=== PATIENT | male | born 1955 | race Caucasian/White ===

== ENCOUNTER 2017-02-01 09:49 | Emergency (ER) | payer OTHER ==
[~2017-02-01] VITALS: Ht 182.9 cm; Wt 136.1 kg
[2017-02-01 10:51] LABS: BASOPHILS % 0.4 % (0.0-1.0); EOSINOPHILS # (AUTO) 0.1 (0.0-0.4); EOSINOPHILS % 0.7 % (0.0-6.0); HEMATOCRIT 41.1 % (38.2-49.6); LYMPHOCYTES % 13.9 % (18.0-39.1); MEAN CORPUSCULAR HEMOGLOBIN 28.6 pg (28-32); MEAN CORPUSCULAR HGB CONC 34.1 g/dL (31-35); MONOCYTES # (AUTO) 0.5 (0.2-0.8); MONOCYTES % 6.6 % (4.4-11.3); NEUTROPHILS # (AUTO) 5.4 (2.1-6.9); NEUTROPHILS % 78.1 % (38.7-80.0); PLATELET COUNT 171 x10e3/uL (140-360); RED BLOOD COUNT 4.89 x10e6/uL (4.3-5.7); RED CELL DISTRIBUTION WIDTH 13.1 % (11.7-14.4)
[2017-02-01] MEDS ORDERED: LIDOCAINE HCL 1% 2 ML AMP INJ ONE (11:00)
[2017-02-01] MEDS ORDERED: CEFAZOLIN SOD 1 GM/NS 50ML 50 ML IV ONE (11:00)
[2017-02-01 11:11] LABS: ALBUMIN 4.1 g/dL (3.5-5.0); ALBUMIN/GLOBULIN RATIO 1.1 (0.8-2.0); ANION GAP 13.1 mmol/L (8-16); CALCIUM 9.8 mg/dL (8.4-10.2); CREATININE, SERUM 1.39 mg/dL (0.72-1.25); POTASSIUM 4.1 mmol/L (3.5-5.1)
[2017-02-01] MEDS ORDERED: CEFAZOLIN SOD 1 GM in WATER STERILE 10ML VIAL 10 ML IV ONE (11:15)
--- NOTE | 2017-02-01 11:15 | Diagnostic Imaging Report ---
Right wrist - 3 views HISTORY: Pain. COMPARISON: None available. FINDINGS: Bones: No acute displaced fracture. No expansile lytic or sclerotic lesion. Joints: The joint spaces are well-maintained. No dislocation. Soft tissues: The soft tissues appear unremarkable. IMPRESSION: No acute radiographic abnormality. Signed by: Dr. Klever Nair M.D. on 02/01/2017 11:12 AM
[2017-02-01] MEDS ORDERED: LIDOCAINE HCL 1% LOCAL INJ 20 ML VIAL INJ ONE (12:00)
== END 2017-02-01 12:42 | disposition home or self-care (01) ==
LOC: ER 09:49
DX: L02.91 Cutaneous abscess, unspecified (principal); I10 Essential (primary) hypertension; E11.9 Type 2 diabetes mellitus without complications; Z87.442 Personal history of urinary calculi
CPT/HCPCS: 10061; 36415; 73110; 80053; 83605; 85025; 87040; 99284; J0690; J2001 ×2

== ENCOUNTER 2018-01-11 10:07 | Observation (INO) | payer OTHER ==
[~2018-01-11] VITALS: Ht 182.9 cm; Wt 111.6 kg
--- OUTSIDE RECORDS SUMMARY | 2018-01-11 10:09 | XMS REPORT ---
Author Author [facility] Address Unknown Phone Unavailable Care Team Providers Care Staff Forester Name Role Phone Rossi LYLE Unavailable Unavailable Problems This patient has no known problems. Allergies, Adverse Reactions, Alerts This patient has no known allergies or adverse reactions. Medications This patient has no known medications. Results Test Description Test Time Test Comments Text Results Atomic Results Result Comments WRIST COMPLETE RIGHT [place] [address] Patient Name: NEHA CRUZ MR #: [id number] : 1955 Age/Sex: 61/M Req #: [id number] Adm Physician: Ordered by: WILIAM LYLE MD Report #: [id number] Location: ER Room/Bed: Procedure: [id number] DX/WRIST COMPLETE RIGHT Exam Date: 02/01/17 Exam Time: 1015 REPORT STATUS: Signed Right wrist - 3 views HISTORY: Pain. COMPARISON: None available. FINDINGS: Bones: No acute displaced fracture. No expansile lytic or sclerotic lesion. Joints: The joint spaces are well- maintained. No dislocation. Soft tissues: The soft tissues appear unremarkable. IMPRESSION: No acute radiographic abnormality. Signed by: Dr. Jonathan Nicole M.D. on 02/01/2017 11:12 AM Dictated By: JONATHAN NICOLE MD [id number] Transcribed By: NATIVIDAD on 02/01/17 1112 COPY TO: WILIAM LYLE MD
[2018-01-11] MEDS ORDERED: CRESTOR10 MG PO (10:35)
[2018-01-11] MEDS ORDERED: POTASSIUM CITR10 MEQ (10:35)
[2018-01-11] MEDS ORDERED: ALLOPURINOL300 MG PO (10:35)
[2018-01-11] MEDS ORDERED: TAMSULOSIN HCL0.4 MG PO (10:35)
[2018-01-11] MEDS ORDERED: CLINDAMYCIN HC300 MG PO (10:35)
[2018-01-11] MEDS ORDERED: INVOKANA PO (10:35)
[2018-01-11] MEDS ORDERED: SULFAMETHOXAZO1 EAC1 PO (10:35)
[2018-01-11] MEDS ORDERED: METFORMIN HCL500 MG PO (10:35)
[2018-01-11] MEDS ORDERED: RAMIPRIL10 MG PO (10:35)
[2018-01-11] MEDS ORDERED: ATENOLOL-CHLOR1 EACH PO (10:35)
[2018-01-11] MEDS ORDERED: CLINDAMYCIN PHOS 900MG/ 50ML 50 ML IV ONE (11:00)
[2018-01-11 11:08] LABS: BASOPHILS % 0.5 % (0.0-1.0); EOSINOPHILS # (AUTO) 0.1 (0.0-0.4); EOSINOPHILS % 1.4 % (0.0-6.0); HEMATOCRIT 43.1 % (38.2-49.6); HEMOGLOBIN 14.3 g/dL (14.0-18.0); LYMPHOCYTES # (AUTO) 1.6 (1.0-3.2); LYMPHOCYTES % 17.9 % (18.0-39.1); MEAN CORPUSCULAR HEMOGLOBIN 28.5 pg (28-32); MEAN CORPUSCULAR HGB CONC 33.2 g/dL (31-35); MEAN CORPUSCULAR VOLUME 85.9 fL (81-99); MONOCYTES # (AUTO) 0.4 (0.2-0.8); MONOCYTES % 4.5 % (4.4-11.3); NEUTROPHILS # (AUTO) 6.7 (2.1-6.9); NEUTROPHILS % 75.4 % (38.7-80.0); PLATELET COUNT 172 x10e3/uL (140-360); RED BLOOD COUNT 5.02 x10e6/uL (4.3-5.7); RED CELL DISTRIBUTION WIDTH 13.4 % (11.7-14.4)
[2018-01-11 11:44] LABS: ALBUMIN 3.8 g/dL (3.5-5.0); ANION GAP 14.9 mmol/L (8-16); CALCIUM 10.2 mg/dL (8.4-10.2); CREATININE, SERUM 1.27 mg/dL (0.72-1.25); POTASSIUM 3.9 mmol/L (3.5-5.1)
[2018-01-11] MEDS ORDERED: ONDANSETRON HCL INJ 2 MG/ML VIAL IV PRN (11:45)
[2018-01-11] MEDS ORDERED: MORPHINE SULFATE 2 MG/ML SYR IV PRN (11:45)
[2018-01-11] MEDS: PIPER-TAZ 3.375 GM 50 ML IV SCH ×2 (11:47→21:39)
[2018-01-11] MEDS: VANCOMYCIN 1GM/NS 250 ML 250 ML IV SCH (12:35)
[2018-01-11] MEDS ORDERED: DEXTROSE 50% SYRINGE 50 ML IV PRN (14:30)
[2018-01-11 15:20] VITALS: BP 135/63
[2018-01-11 15:22] LABS: CHOL/HDL RATIO 3.1 (3.9-4.7)
[2018-01-11] MEDS: INSULIN REGULAR, HUMAN 100 UNIT/1 ML 3ML VIAL SQ SCH ×2 (16:30→21:00)
[2018-01-11 16:39] VITALS: BP 135/63
[2018-01-11 20:00] VITALS: BP 130/65
[2018-01-11 20:30] VITALS: BP 130/65
[2018-01-11] MEDS: SIMVASTATIN 20 MG TAB PO SCH (21:00)
[2018-01-11] MEDS ORDERED: SODIUM CHLORIDE 0.9% 250ML 250 ML ONE (21:27)
[2018-01-11] MEDS: ACETAMINOPHEN 325 MG TAB PO PRN (22:03)
--- NOTE | 2018-01-11 22:03 | Diagnostic Imaging Report ---
History:Possible abscess of the lower lip Comparison studies: None Technique: Sagittal, coronal and axial T1, coronal and axial T2 with fat saturation. Intravenous contrast: None Findings: Lack of intravenous contrast limits the examination. Soft tissues: Edematous changes of the lower lip more prominent on the left, without drainable fluid collection Bones: No signal abnormalities in the bone marrow. Orbits: Globes: Grossly intact. Optic nerves and extraocular muscles: Normal in size and symmetric. Masses: None Paranasal sinuses: No T2 hyperintense mucosal inflammatory changes. IMPRESSION: 1. Left lower lip cellulitis without drainable fluid collection. Signed by: DR Adal Rodas M.D. on 01/11/2018 9:59 PM
--- NOTE | 2018-01-11 23:54 | History and Physical ---
PRIMARY CARE PHYSICIAN: Dr. Queen. CHIEF COMPLAINT: Lip swelling. HISTORY OF PRESENT ILLNESS: This is a 62-year-old man with a history of diabetes mellitus type 2, who had ingrown hair on his left lower lip, started picking on it and subsequently developed swelling and pain of the left lower lip. He was admitted for further evaluation and management. PAST MEDICAL HISTORY: Diabetes mellitus type 2, hypertension, nephrolithiasis, BPH, and cellulitis. PAST SURGICAL HISTORY: Nephrolithiasis-related appendectomy, lymph node resection in the left axilla, which was benign. ALLERGIES: Per electronic medical records. SOCIAL HISTORY: Patient is . He has 2 children. No alcohol, illicits or cigarettes. MEDICATIONS: Per electronic medical record. REVIEW OF SYSTEM: Denies any dizziness, chest pain, shortness of breath, fever, chills sweats, nausea, vomiting, diarrhea, headache or back pain. PHYSICAL EXAMINATION VITAL SIGNS: Reviewed. GENERAL: A tired-appearing man, resting in bed. HEENT: Anicteric. Left lower lip is indurated, tender, erythematous and edematous. CARDIOVASCULAR: Normal S1, S2. LUNGS: Moderate breath sounds. ABDOMEN: Soft, nontender, and nondistended. EXTREMITIES: No edema or calf tenderness. NEUROLOGIC: Alert, oriented x 3. Moves all extremities. SKIN: Dry. PSYCHIATRIC: Normal affect. LABS: Reviewed. MEDICATIONS: Reviewed. ASSESSMENT: This is a 62-year-old man with; 1. Left lower lip abscess. 2. Acute kidney injury. 3. Obesity. 4. Diabetes mellitus type 2. 5. Hyperlipidemia. 6. Benign prostatic hypertrophy. PLAN 1. IV antibiotics. 2. Follow up MRI imaging. 3. Surgical team onboard. 4. We will obtain hemoglobin A1c and lipid panel. 5. Use SCD for prophylaxis. 6. Disposition. 7. Continue IV antibiotics. He is on vancomycin and Zosyn at this time. 8. Monitor renal function. Job#: [id number] KIP
[2018-01-12] VITALS (8 sets, daily range): BP systolic 119–143; BP diastolic 57–93
--- NOTE | 2018-01-12 00:12 | Consultation ---
DATE OF CONSULTATION: January 11, 2018 CHIEF COMPLAINT: Lower lip infection, possible abscess. HISTORY OF PRESENT ILLNESS: The patient is a 62-year-old male who states that on , he noticed what appeared to him to be an infected hair follicle on the vermilion border of the lower lip on the left side. He states that he plucked the whisker out and obtained a small amount of purulence. He stated that over the next 24-48 hours, the lip began to get tender, swollen, and very reddened looking. On Friday, 2 days later, he went to a local area emergency room and had IM injections of antibiotics. He states that despite the antibiotic injections, the lip symptoms continued to worsen and he presented to the emergency room earlier today. PAST MEDICAL HISTORY: Notable for diabetes mellitus. PAST SURGICAL HISTORY: Noncontributory. PHYSICAL EXAMINATION VITAL SIGNS: The patient is afebrile, and vital signs are stable. HEENT: A marked amount of swelling beginning just to the right of the midline of the lower lip and extending to the commissure on the left side. The lip is quite firm to palpation. There does not appear to be any fluctuance. There does not appear to be any draining sinus either. Intraoral exam reveals no significant caries or gum disease or intraoral extension of the abscess, although it is palpable through the buccal mucosa. LABORATORY AND DIAGNOSTIC DATA: The white blood cell count is 8000. There are no radiographic images for review. IMPRESSION: Lower lip infection, possible cellulitis versus abscess. PLAN: The patient will get an MRI this evening on a STAT basis without contrast. This will be evaluated in the morning. He will be kept n.p.o. after midnight for possible incision and drainage tomorrow. Thank you for allowing me to participate in the care of your patient. Job#: [id number] LPA
[2018-01-12] MEDS: VANCOMYCIN 1GM/NS 250 ML 250 ML IV SCH ×2 (00:45→13:45)
[2018-01-12 05:32] LABS: BASOPHILS % 0.4 % (0.0-1.0); EOSINOPHILS # (AUTO) 0.2 (0.0-0.4); HEMATOCRIT 41.4 % (38.2-49.6); HEMOGLOBIN 13.4 g/dL (14.0-18.0); LYMPHOCYTES # (AUTO) 1.5 (1.0-3.2); LYMPHOCYTES % 18.3 % (18.0-39.1); MEAN CORPUSCULAR HEMOGLOBIN 28.2 pg (28-32); MEAN CORPUSCULAR HGB CONC 32.4 g/dL (31-35); MONOCYTES # (AUTO) 0.6 (0.2-0.8); NEUTROPHILS # (AUTO) 5.8 (2.1-6.9); NEUTROPHILS % 72.2 % (38.7-80.0); PLATELET COUNT 184 x10e3/uL (140-360); RED BLOOD COUNT 4.76 x10e6/uL (4.3-5.7); RED CELL DISTRIBUTION WIDTH 13.5 % (11.7-14.4)
[2018-01-12] MEDS: PIPER-TAZ 3.375 GM 50 ML IV SCH ×3 (05:33→20:13)
[2018-01-12 05:43] LABS: ANION GAP 12.6 mmol/L (8-16); CREATININE, SERUM 1.31 mg/dL (0.72-1.25); POTASSIUM 4.6 mmol/L (3.5-5.1)
--- NOTE | 2018-01-12 06:33 | Diagnostic Imaging Report ---
EXAMINATION: CHEST SINGLE (PORTABLE) INDICATION: Possible surgery. ^POSSIBLE SURGERY COMPARISON: None FINDINGS: AP view TUBES and LINES: None. LUNGS: Lungs are well inflated. Lungs are clear. There is no evidence of pneumonia or pulmonary edema. PLEURA: No pleural effusion or pneumothorax. HEART AND MEDIASTINUM: The cardiomediastinal silhouette is unremarkable. BONES AND SOFT TISSUES: No acute osseous lesion. Soft tissues are unremarkable. UPPER ABDOMEN: No free air under the diaphragm. IMPRESSION: No acute thoracic abnormality. Signed by: DR. Sharif Aviles MD on 01/12/2018 6:29 AM
[2018-01-12] MEDS: INSULIN REGULAR, HUMAN 100 UNIT/1 ML 3ML VIAL SQ SCH ×4 (07:30→21:00)
[2018-01-12] MEDS: FENOFIBRATE 145 MG TAB PO SCH (09:00)
[2018-01-12] MEDS: ACETAMINOPHEN 325 MG TAB PO PRN ×2 (09:02→20:13)
[2018-01-12] MEDS ORDERED: BUPIVACAINE HCL 0.5% INJ 30 ML VIAL INJ ONE (10:12)
[2018-01-12] MEDS ORDERED: MUPIROCIN 2% OINT 22 GM TUBE ONE (10:12)
[2018-01-12] MEDS ORDERED: LIDOCAINE 1% W/EPINEPHRINE 20 ML VIAL ONE (11:15)
[2018-01-12] MEDS ORDERED: MORPHINE SULFATE INJ 4 MG/ML INJ IV PRN (12:45)
[2018-01-12] MEDS: CHLORTHALIDONE 25 MG TAB PO SCH (13:28)
[2018-01-12] MEDS: ATENOLOL 50 MG TAB PO SCH (13:29)
[2018-01-12] MEDS: ALLOPURINOL 300 MG TAB PO SCH (13:29)
--- NOTE | 2018-01-12 15:12 | Operative Report ---
DATE OF PROCEDURE: January 12, 2018 PREOPERATIVE DIAGNOSIS: Abscess, lower lip. POSTOPERATIVE DIAGNOSIS: Abscess of orbicularis maegan muscle. PROCEDURE: Incision and drainage of abscess of orbicularis maegan muscle. ANESTHESIA: General. HISTORY: The patient is a 62-year-old male who was admitted from the emergency room yesterday with a several-day history of pain and abscess formation of the lower lip. The patient was seen last evening. He was started on intravenous antibiotics. MRI was obtained which shows abscess of the lower lip. Risks, benefits and alternatives of treatment were discussed with the patient. He is prepared to undergo the procedures outlined. DETAILS OF PROCEDURE: Patient was marked preoperatively in the holding area. He was brought to the operating theater. After the induction of adequate general anesthesia, he was prepped and draped in a supine position. A time out was performed. The procedure was begun by marking out the prominence of the abscess on the left side of the lower lip. The area was then infiltrated with 1% Xylocaine with epinephrine. An incision was made through the mucosa and the submucosal tissues. No purulence was obtained. Using a hemostat, the orbicularis maegan muscle was then gently teased apart, and approximately 3 to 5 mL of purulent exudate was encountered. This was cultured both aerobically and anaerobically. At this point, the abscess cavity was irrigated until the effluent was clear. Quarter-inch packing was placed into the abscess cavity, and the mucosa was loosely closed with 5-0 chromic sutures in an interrupted fashion. Bactroban ointment was applied to the lip. The patient was then returned to the recovery room in satisfactory condition and then returned back to his hospital room for further care and treatment. Job#: [id number]
[2018-01-12] MEDS ORDERED: LIDOCAINE HCL 2% LOCAL INJ 5 ML SDV VIAL INJ ONE (18:00)
[2018-01-12] MEDS ORDERED: ONDANSETRON HCL INJ 2 MG/ML VIAL ONE (18:00)
[2018-01-12] MEDS ORDERED: PROPOFOL IV EMULSION 10 MG/ML 20 ML VIAL ONE (18:00)
[2018-01-12] MEDS ORDERED: SEVOFLURANE INHAL SOLN 250 ML PEN BTL ONE (18:00)
[2018-01-12] MEDS ORDERED: MIDAZOLAM HCL 2 MG/2 ML VIAL ONE (18:17)
[2018-01-12] MEDS ORDERED: FENTANYL CITRATE/PF 100MCG/2 ML INJ ONE (18:17)
[2018-01-12] MEDS: SIMVASTATIN 20 MG TAB PO SCH (20:13)
[2018-01-12] MEDS ORDERED: TAMSULOSIN HCL 0.4 MG CAP PO SCH (21:00)
[2018-01-13] VITALS: BP 155/77
[2018-01-13] MEDS: VANCOMYCIN 1GM/NS 250 ML 250 ML IV SCH ×2 (00:59→13:05)
[2018-01-13] MEDS ORDERED: HYDROCODONE/APAP 5MG-325MG TAB PO PRN (02:00)
[2018-01-13 03:56] VITALS: BP 133/74
[2018-01-13] MEDS: PIPER-TAZ 3.375 GM 50 ML IV SCH ×2 (05:08→11:30)
[2018-01-13 08:00] VITALS: BP 133/71
[2018-01-13] MEDS: ALLOPURINOL 300 MG TAB PO SCH (09:11)
[2018-01-13] MEDS: ATENOLOL 50 MG TAB PO SCH (09:11)
[2018-01-13] MEDS: FENOFIBRATE 145 MG TAB PO SCH (09:11)
[2018-01-13] MEDS: CHLORTHALIDONE 25 MG TAB PO SCH (09:11)
[2018-01-13] MEDS: INSULIN REGULAR, HUMAN 100 UNIT/1 ML 3ML VIAL SQ SCH ×3 (09:12→16:30)
[2018-01-13 11:46] VITALS: BP 132/65
[2018-01-13 16:37] VITALS: BP 134/66
[2018-01-13] MEDS ORDERED: CIPRO500 MG PO (17:50)
[2018-01-13] MEDS ORDERED: CLINDAMYCIN HC150 MG PO (17:51)
== END 2018-01-13 18:10 | disposition home or self-care (01) ==
LOC: ER 10:07 → ERHOLD 11:32 → IMCU 14:35
PROVIDERS: ADMIT Internal Medicine; ATTEND Internal Medicine
DX: M60.08 Infective myositis, other site (principal); K12.2 Cellulitis and abscess of mouth; I10 Essential (primary) hypertension; E11.9 Type 2 diabetes mellitus without complications; Z88.5 Allergy status to narcotic agent; Z83.3 Family history of diabetes mellitus; Z82.49 Family history of ischemic heart disease and other diseases of the circulatory system; N20.0 Calculus of kidney; N40.0 Benign prostatic hyperplasia without lower urinary tract symptoms; N17.9 Acute kidney failure, unspecified; E66.9 Obesity, unspecified; E78.5 Hyperlipidemia, unspecified; Z68.33 Body mass index [BMI] 33.0-33.9, adult; B95.62 Methicillin resistant Staphylococcus aureus infection as the cause of diseases classified elsewhere; Z79.84 Long term (current) use of oral hypoglycemic drugs
CPT/HCPCS: 20005; 36415 ×3; 70540; 71045; 80048; 80053; 80061; 82948 ×3; 83036; 85025 ×2; 87040; 87071; 87075; 87186; 87205; 96365; 96367 ×2; 99284; G0378 ×3; J2001; J2250; J2270; J2405 ×2; J2543 ×3; J2704; J3370 ×3; J7050

== ENCOUNTER 2020-04-14 10:52 | Outpatient (RCR) | payer OTHER ==
[~2020-04-14 10:52] MED LIST: ALLOPURINOL300 MG PO; ATENOLOL-CHLOR1 EACH PO; CIPRO500 MG PO; CLINDAMYCIN HC150 MG PO; CLINDAMYCIN HC300 MG PO; CRESTOR10 MG PO; INVOKANA PO; METFORMIN HCL500 MG PO; POTASSIUM CITR10 MEQ; RAMIPRIL10 MG PO; SULFAMETHOXAZO1 EAC1 PO; TAMSULOSIN HCL0.4 MG PO
== END 2020-04-16 ==
LOC: PT 10:52
PROVIDERS: ATTEND Specialist
DX: M75.01 Adhesive capsulitis of right shoulder (principal); M67.811 Other specified disorders of synovium, right shoulder

== ENCOUNTER 2020-05-10 10:00 | Outpatient (RCR) | payer MEDICARE, OTHER | END 2020-05-17 | LOC: PT 10:00 | PROVIDERS: ATTEND Specialist | DX: M75.01 Adhesive capsulitis of right shoulder (principal); M67.813 Other specified disorders of tendon, right shoulder ==